=== PATIENT | male | born 1950 | race Caucasian/White ===

== ENCOUNTER 2019-03-01 17:48 | Emergency (ER) | payer MEDICARE, BC ==
[2019-03-01 19:46] LABS: ABS Basophils 0.1 10^3/ul (0-0.2); ABS Eosinophils 0.3 10^3/ul (0-0.6); ABS Neutrophils 4.5 10^3/ul (1.5-7.7); Eosinophil % 3.2 %; Hematocrit 43 % (42-52); Hemoglobin 14.4 g/dL (14.0-18.0); Lymphocyte % 33.6 %; Mean Corpuscular HGB Conc 34 g/dL (31-36); Mean Corpuscular Hemoglobin 32 pg (27-31); Mean Corpuscular Volume 95 fL (80-94); Nucleated Red Blood Cells % 0.1; Platelet Count 263 10^3/uL (150-450); Red Blood Count 4.47 10^6 /uL (4.18-5.48); Red Cell Distribution Width 13 % (10.5-15); White Blood Count 8.8 10^3/uL (3.5-10.8)
[2019-03-01 20:09] LABS: Albumin 4.5 g/dL (3.2-5.2); Albumin/Globulin Ratio 1.7 (1-3); BUN/Creatinine Ratio 19.6 (8-20); C Reactive Protein 9.28 mg/L (<8.01); Calcium 9.6 mg/dL (8.6-10.3); EGFR African American 82.9 (>60); EGFR Non-African American 68.5 (>60); Globulin 2.6 g/dL (2-4); Potassium 3.6 mmol/L (3.5-5.0); Total Bilirubin 0.5 mg/dL (0.2-1.0); Total Protein 7.1 g/dL (6.4-8.9)
[2019-03-01 20:32] LABS: Urine Appearance Cloudy; Urine Bilirubin Negative (Negative); Urine Blood Negative (Negative); Urine Color Amber; Urine Glucose Negative (Negative); Urine Ketones Trace (Negative); Urine Nitrite Negative (Negative); Urine Protein Negative (Negative); Urine Specific Gravity 1.029 (1.010-1.030); Urine Urobilinogen Negative (Negative)
--- NOTE | 2019-03-01 20:33 | ED ---
Abdominal Pain/Male - HPI Summary HPI Summary: The patient is a 68 y/o M presenting to [facility] with a chief complaint of sudden onset abd pressure in the lower abd and epigastric region with burning sensation in the throat starting three days ago with intermittent episodes of resolving and returning. He states that when the pain started, he was also nauseous but did not vomit, and he had a decreased appetite at the time. This persisted into the next day with the same feeling of abd pressure and throat burning accompanied by nausea, but he did vomit yellow phlegm, which helped to alleviate his symptoms for awhile. However, his symptoms returned about 6 or 7 hours later, when he vomiting again and felt better the next morning when he woke up as his appetite had returned, but then his symptoms have since come back and his appetite has dissipated again. He additionally states that his last BM was the day of onset for his symptoms, and he has felt bloated. His pain is currently rated 2/10 in severity. Hx of cardiovascular disease and Type II DM. No previous hx of gastro problems, but has cholecystectomy. His PCP suggested he be evaluated for colon conditions. - History of Current Complaint Chief Complaint: Bj Stated Complaint: GASTRO PROBLEMS, SENT BY [facility] OFFICE PER PT Time Seen by Provider: 03/01/19 20:22 Hx Obtained From: Patient Onset/Duration: Sudden Onset, Lasting Days, Still Present Timing: Intermittent, Lasting Hours Severity Initially: Moderate Severity Currently: Mild Pain Intensity: 2 Pain Scale Used: 0-10 Numeric Location: Epigastric, Other - low abd Radiates: No Character: Burning Aggravating Factor(s): Nothing Alleviating Factor(s): Vomiting Associated Signs And Symptoms: Positive: Decreased Appetite, Nausea, Vomiting, Other - decreased frequency of BM, bloating - Allergies/Home Medications Allergies/Adverse Reactions: Allergies Allergy/AdvReac Type Severity Reaction Status Date / Time Zfrkjot-Aju-Hao Reductase Allergy Severe See Comment Verified 03/01/19 18:02 Inhibitor Sulfa (Sulfonamide Allergy Severe Muscle Ache Verified 03/01/19 18:02 Antibiotics) gemfibrozil Allergy Unknown Unknown Verified 03/01/19 18:02 Reaction Details PMH/Surg Hx/FS Hx/Imm Hx Endocrine/Hematology History: Reports: Hx Diabetes - TYPE II-ON ORAL MEDICATION FOR Cardiovascular History: Reports: Hx Angina, Hx Coronary Artery Disease - [address]- 3-5 YRS AGO, Hx Hypercholesterolemia, Hx Hypertension - ON MEDICATION FOR Respiratory History: Denies: Hx Asthma, Hx Chronic Obstructive Pulmonary Disease (COPD) GI History: Reports: Hx Gastroesophageal Reflux Disease - ON MEDICATION FOR History: Denies: Hx Renal Disease Musculoskeletal History: Reports: Hx Arthritis - LEFT HAND Sensory History: Reports: Hx Cataracts - BILATERAL, Hx Contacts or Glasses - GLASSES Denies: Hx Hearing Aid Opthamlomology History: Reports: Hx Cataracts - BILATERAL, Hx Contacts or Glasses - GLASSES Neurological History: Reports: Hx Headaches - NONE IN THE LAST 20 YEARS - Surgical History Surgery Procedure, Year, and Place: OPEN GALLBLADDER REMOVED-~25 YEARS AGO- [facility]. NASAL SURGERY- [facility] Hx Anesthesia Reactions: No Infectious Disease History: No Infectious Disease History: Denies: Traveled Outside the [place] in Last 30 Days - Family History Known Family History: Positive: Diabetes - Social History Alcohol Use: Rare Hx Substance Use: No Substance Use Type: Reports: None Hx Tobacco Use: Yes Smoking Status (MU): Former Smoker Type: Cigarettes Do You Chew or Dip Tobacco: No Amount Used/How Often: 1 PPD X 40 YEARS Have You Smoked in the Last Year: Yes Review of Systems Positive: Other - burning sensation in throat Positive: Abdominal Pain - pressure in low abd and epigastric region, bloated sensation, Vomiting, Nausea, Other - decreased appetite, decreased frequency of BM All Other Systems Reviewed And Are Negative: Yes Physical Exam - Summary Physical Exam Summary: Appearance: Well-appearing, Well-nourished, lying in bed comfortably Skin: Warm, dry, no obvious rash Eyes: sclera anicteric, no conjunctival pallor ENT: mucous membranes moist, pharynx appears normal Neck: Supple, nontender Respiratory: Clear to auscultation, no signs of respiratory distress Cardiovascular: Normal S1, S2. No murmurs. Normal distal pulses in tibial and radial bilaterally. Abdomen: Soft, nontender, normal active bowel sounds present Musculoskeletal: Normal, Strength/ROM Intact Neurological: A&Ox3, awake and alert, mentation is normal, speech is fluent and appropriate Psychiatric: affect is normal, does not appear anxious or depressed Triage Information Reviewed: Yes Vital Signs On Initial Exam: Initial Vitals Temp Pulse Resp BP Pulse Ox 98.6 F 62 16 126/76 96 03/01/19 17:55 03/01/19 17:55 03/01/19 17:55 03/01/19 17:55 03/01/19 17:55 Vital Signs Reviewed: Yes Diagnostics - Vital Signs Vital Signs Temp Pulse Resp BP Pulse Ox 03/01/19 17:55 98.6 F 62 16 126/76 96 - Laboratory Lab Results: Lab Results 03/01/19 03/01/19 03/01/19 Range/Units 19:39 19:39 19:39 WBC 8.8 (3.5-10.8) 10^3/uL RBC 4.47 (4.18-5.48) 10^6 /uL Hgb 14.4 (14.0-18.0) g/dL Hct 43 (42-52) % MCV 95 H (80-94) fL MCH 32 H (27-31) pg MCHC 34 (31-36) g/dL RDW 13 (10.5-15) % Plt Count 263 (150-450) 10^3/uL MPV 8.0 (7.4-10.4) fL Neut % (Auto) 51.4 % Lymph % (Auto) 33.6 % Borden % (Auto) 10.9 % Eos % (Auto) 3.2 % Baso % (Auto) 0.9 % Absolute Neuts (auto) 4.5 (1.5-7.7) 10^3/ul Absolute Lymphs (auto) 3.0 (1.0-4.8) 10^3/ul Absolute Monos (auto) 1.0 H (0-0.8) 10^3/ul Absolute Eos (auto) 0.3 (0-0.6) 10^3/ul Absolute Basos (auto) 0.1 (0-0.2) 10^3/ul Absolute Nucleated RBC 0.0 10^3/ul Nucleated RBC % 0.1 Sodium 139 (135-145) mmol/L Potassium 3.6 (3.5-5.0) mmol/L Chloride 103 (101-111) mmol/L Carbon Dioxide 27 (22-32) mmol/L Anion Gap 9 (2-11) mmol/L BUN 21 (6-24) mg/dL Creatinine 1.07 (0.67-1.17) mg/dL Est GFR ( Amer) 82.9 (>60) Est GFR (Non-Af Amer) 68.5 (>60) BUN/Creatinine Ratio 19.6 (8-20) Glucose 183 H (70-100) mg/dL Lactic Acid 1.4 (0.5-2.0) mmol/L Calcium 9.6 (8.6-10.3) mg/dL Total Bilirubin 0.50 (0.2-1.0) mg/dL AST 38 (13-39) U/L ALT 67 H (7-52) U/L Alkaline Phosphatase 63 (34-104) U/L C-Reactive Protein 9.28 H (<8.01) mg/L Total Protein 7.1 (6.4-8.9) g/dL Albumin 4.5 (3.2-5.2) g/dL Globulin 2.6 (2-4) g/dL Albumin/Globulin Ratio 1.7 (1-3) Lipase 29 (11.0-82.0) U/L Result Diagrams: 03/01/19 19:39 03/01/19 19:39 Lab Statement: Any lab studies that have been ordered have been reviewed, and results considered in the medical decision making process. - CT Abd/Pel CT CT Interpretation Completed By: Radiologist Summary of CT Findings: There is mild dilation of loops of jejunum with air fluid levels with transition at the level of the ileum, cannot exclude small bowel obstruction. ED physician has reviewed this radiology report. - EKG 1904 Cardiac Rate: Bradycardia - 53 BPM EKG Rhythm: Sinus Bradycardia Summary of EKG Findings: Atrial premature complex. Re-Evaluation - Re-Evaluation First Eval Re-Evaluation Time: 01:15 Comment: I spoke with the patient concerning possible admission for SBO. He declines admission at this time. Abdominal Pain Male Course/Dx - Course Course Of Treatment: The patient is a 68 y/o M presenting to [facility] with a chief complaint of sudden onset abd pressure in the lower abd and epigastric region with burning sensation in the throat starting three days ago with intermittent episodes of resolving then returning. He additionally c/o nausea, vomiting, and decreased appetite. Hx of cholecystectomy. Upon physical exam, the patient exhibits no significant abnormalities. In the ED course, the patient was administered Zofran for nausea and Iodixanol for CT. Blood work reveals MCV of 95, MCH of 32, abs monos of 1.0, glucose of 183, ALT of 67, and CRP of 9.28 without any other acute abnormalities. UA reveals trace ketones. EKG reveals sinus bradycardia at 53 BPM with atrial premature complex. Abd/Pel CT impression : There is mild dilation of loops of jejunum with air fluid levels with transition at the level of the ileum, cannot exclude small bowel obstruction. He is diagnosed with abdominal pain, vomiting, and small bowel obstruction. At 0110, I consulted with Dr. Rosario, surgery, concerning patient's case; he recommends surgical follow up. The patient will be discharged home with rx for Zofran and follow up with Dr. Rosario tomorrow and strict instructions for clear liquids diet. He agrees with this plan and understands the need for return to the ED for any new or worsening symptoms. - Diagnoses Provider Diagnoses: Abdominal pain, Vomiting, Ileus - Provider Notifications Discussed Care Of Patient With: Vasyl Rosario - surgery Time Discussed With Above Provider: 01:10 Instructed by Provider To: Other - I consulted with Dr. Rosario concerning patient's case; he recommends surgical follow up. Discharge - Sign-Out/Discharge Documenting (check all that apply): Patient Departure - Patient will be discharged home. Patient Received Moderate/Deep Sedation with Procedure: No - Discharge Plan Condition: Good Disposition: HOME Prescriptions: Ondansetron ODT TAB* [Zofran 4 MG Odt TAB*] 8 mg PO Q6H PRN #12 tab.odt PRN Reason: Nausea Patient Education Materials: Bowel Obstruction (ED) Referrals: Vasyl Rosario MD [Medical Doctor] - 1 Day Additional Instructions: I would like you to stick to clear liquids, nothing solid, for the next 24-36 hrs. Contact the surgeon's office tomorrow, I spoke with the covering surgeon nathaniel. I have prescribed some medication for nausea as well. - Billing Disposition and Condition Condition: GOOD Disposition: Home - Attestation Statements Document Initiated by Isabelibe: Yes Documenting Scribe: Malika Cassidy Provider For Whom Mickey is Documenting (Include Credential): Dr. Juan Baldwin MD Scribe Attestation: Malika Carbajal, scribed for Dr. Juan Baldwin MD on 03/03/19 at 0442. Scribe Documentation Reviewed: Yes Provider Attestation: The documentation as recorded by the Malika gonzalez accurately reflects the service I personally performed and the decisions made by me, Dr. Juna Baldwin MD Status of Scribe Document: Viewed
[2019-03-01] MEDS ORDERED: Iodixanol* (CONTRAST) 320 MG/ML 100 ML SDV IV ONE (21:59)
[2019-03-02] MEDS ORDERED: Ondansetron ODT TAB* 4 MG SL ONE (01:16)
[2019-03-02 01:49] VITALS: BP 140/74
== END 2019-03-02 01:48 | disposition home or self-care (01) ==
LOC: ED 17:48
DX: K56.7 Ileus, unspecified (principal); R10.9 Unspecified abdominal pain; R11.10 Vomiting, unspecified; R94.31 Abnormal electrocardiogram [ECG] [EKG]; I10 Essential (primary) hypertension; E11.9 Type 2 diabetes mellitus without complications; I25.10 Atherosclerotic heart disease of native coronary artery without angina pectoris; E78.00 Pure hypercholesterolemia, unspecified; K21.9 Gastro-esophageal reflux disease without esophagitis; Z88.8 Allergy status to other drugs, medicaments and biological substances; Z88.2 Allergy status to sulfonamides; Z79.84 Long term (current) use of oral hypoglycemic drugs; Z95.5 Presence of coronary angioplasty implant and graft; Z79.899 Other long term (current) drug therapy; Z87.891 Personal history of nicotine dependence
CPT/HCPCS: 36415; 74177; 80053; 81003; 83605; 83690; 85025; 86140; 93005; 99282; A9270-GY; Q9967

== ENCOUNTER 2022-08-29 06:40 | Inpatient (IN) ==
[2022-08-29] MEDS ORDERED: nitroGLYCERIN DRIP 25,000 MCG/250 ML BTL ONE (08:14)
[2022-08-29] MEDS ORDERED: Midazolam 5 mg/5 ml VIAL 1 mg/ml 5 ml VIAL (5 mg) ONE (08:14)
[2022-08-29] MEDS ORDERED: fentaNYL 100 mcg/2 ml 50 MCG/ML VIAL ONE (08:14)
[2022-08-29] MEDS ORDERED: Heparin 1,000 UNIT/ML 10 ml (10,000 UNITS) CATHLAB/DIALYSIS ONE (08:14)
[2022-08-29] MEDS ORDERED: Heparin 2 UNITS/ML 1000 mls 2,000 ML IV ONE (08:14)
[2022-08-29] MEDS ORDERED: VERAPAMIL 2.5 MG/ML 2 ML VIAL ** 5 mg/2 ml ONE (08:14)
[2022-08-29] MEDS ORDERED: Iohexol 350 (CONTRAST) 100 ML PAK IV ONE ×2 (08:15→08:57)
[2022-08-29] MEDS ORDERED: Lidocaine 1% MPF 5 ML VIAL ONE (08:15)
[2022-08-29] MEDS ORDERED: Atropine 0.1 MG/ML 10 ml SYR (1 mg) ONE (08:42)
[2022-08-29] MEDS ORDERED: Bivalirudin 250 MG VIAL ONE (08:51)
[2022-08-29] MEDS ORDERED: Dextrose 50% Syringe 50 ml 25 GM/50 ML SYRINGE IV PUSH PRN (10:28)
[2022-08-29] MEDS ORDERED: Calcium Carb (TUMS) 500 mg CHEW TAB PO ONE (10:46)
[2022-08-29] MEDS ORDERED: hydrALAZINE 20 mg/ml 1 ML Vial IV IV SLOW PU PRN (16:06)
[2022-08-30 04:41] LABS: ABS Basophils 0.1 10^3/ul (0-0.2); ABS Eosinophils 0.4 10^3/ul (0-0.6); ABS Lymphocytes 2.3 10^3/ul (1.0-4.8); ABS Monocytes 0.8 10^3/ul (0-0.8); ABS Neutrophils 4.9 10^3/ul (1.5-7.7); Eosinophil % 5.1 %; Hematocrit 41 % (42-52); Hemoglobin 13.3 g/dL (14.0-18.0); Lymphocyte % 26.7 %; Mean Corpuscular HGB Conc 33 g/dL (31-36); Mean Corpuscular Hemoglobin 31 pg (27-31); Mean Corpuscular Volume 96 fL (80-94); Mean Platelet Volume 7.8 fL (7.4-10.4); Nucleated Red Blood Cells % 0.2; Platelet Count 229 10^3/uL (150-450); Red Blood Count 4.26 10^6 /uL (4.18-5.48); Red Cell Distribution Width 14 % (10-15); White Blood Count 8.5 10^3/uL (3.5-10.8)
[2022-08-30 05:39] LABS: Calcium 8.6 mg/dL (8.6-10.3); Magnesium 2.1 mg/dL (1.9-2.7); Potassium 3.9 mmol/L (3.5-5.0); eGFR CKD-EPI 94.9 (>60)
[2022-08-30 08:11] VITALS: BP 163/66
== END 2022-08-30 12:03 | disposition home or self-care (01) | DRG 247 ==
LOC: CHICATH 06:40 → ICU 09:51